=== PATIENT | male | born 1970 | race Caucasian/White ===

== ENCOUNTER 2018-09-26 08:39 | Emergency (ER) | payer BC ==
--- NOTE | 2018-09-26 09:06 | UC ---
UC General HPI - HPI Summary HPI Summary: PT IS C/O A HIVY RASH TO HIS FACE AND UPPER CHEST AND BACK X 4 DAYS. DENIES NEW EXPOSREES, FEVER ANDF ANY ACUTE ILLNESS. IS ON ENBREL FOR PSORIATIC ARTHRITIS - History of Current Complaint Chief Complaint: UCRash Stated Complaint: SKIN COMPLAINT Time Seen by Provider: 09/26/18 08:50 Hx Obtained From: Patient Onset/Duration: Gradual Onset Timing: Constant Pain Intensity: 0 Associated Signs & Symptoms: Negative: Fever - Allergy/Home Medications Allergies/Adverse Reactions: Allergies Allergy/AdvReac Type Severity Reaction Status Date / Time No Known Allergies Allergy Verified 09/26/18 08:52 Home Medications: Home Medications Etanercept SYR (NF) [Enbrel (NF)] 50 mg SUBCUT Q14D 09/26/18 [History Confirmed 09/26/18] Turmeric [Curcumin] 30 ml PO DAILY 09/26/18 [History Confirmed 09/26/18] PMH/Surg Hx/FS Hx/Imm Hx - Additional Past Medical History Additional PMH: PSORIATIC ARTHRITIS, WHITE COAT HTN - Surgical History Surgical History: None - Social History Alcohol Use: Daily Substance Use Type: None Smoking Status (MU): Never Smoked Tobacco - Immunization History Vaccination Up to Date: Yes Review of Systems All Other Systems Reviewed And Are Negative: Yes Constitutional: Positive: Negative Skin: Positive: Rash Eyes: Positive: Negative ENT: Positive: Negative Respiratory: Positive: Negative Cardiovascular: Positive: Negative Gastrointestinal: Positive: Negative Genitourinary: Positive: Negative Motor: Positive: Negative Neurovascular: Positive: Negative Musculoskeletal: Positive: Negative Neurological: Positive: Negative Psychological: Positive: Negative Physical Exam Triage Information Reviewed: Yes Appearance: Well-Appearing Vital Signs: Initial Vital Signs Temp 98.1 F 09/26/18 08:49 Pulse 85 09/26/18 08:49 Resp 14 09/26/18 08:49 BP 167/90 09/26/18 08:49 Pulse Ox 98 09/26/18 08:49 Vital Signs Reviewed: Yes Eyes: Positive: Conjunctiva Clear ENT: Positive: Normal ENT inspection Neck: Positive: Supple, Nontender, No Lymphadenopathy Respiratory: Positive: Lungs clear, Normal breath sounds Cardiovascular: Positive: RRR, No Murmur Abdomen Description: Positive: Nontender, No Organomegaly, Soft Bowel Sounds: Positive: Present Musculoskeletal: Positive: ROM Intact Neurological: Positive: Alert Psychological: Positive: Age Appropriate Behavior Skin: Positive: Rashes - CONFLUENT DRY SCALEY RASH ON RED BASE TO LOWER HALF OF TRUNK(PT STATES CHRONIC), SEVERAL SMALL SPOTS WITH SAME APPEARANCE ON FACE UPPER CHEST AND UPPER BACK. NO BLISTERING AND NOT PETECHIAL. Course/Dx - Course Course Of Treatment: CASE D/W DR MIRAMONTES WHO ASLO EXAMED RASH AND WE AGREE JESSENIA IS C/W HIS PSORIASISI AND WILL TX WITH MEDROL DOSE NEGAR AND F/U WITH HIS SPECIALIST. BP ELEVATED HERE. PT STATES ALWAYS HAPPENS DURING VISIT THENS RESOLVES. - Differential Dx - Multi-Symptom Differential Diagnoses: Other - VIRAL RASH, HIVES, PSORIASIS - Diagnoses Provider Diagnosis: Psoriasis Discharge - Sign-Out/Discharge Documenting (check all that apply): Patient Departure All imaging exams completed and their final reports reviewed: No Studies - Discharge Plan Condition: Stable Disposition: HOME Prescriptions: methylPREDNISolone [Medrol Dosepak 4 MG*] 0 mg PO .SEE NEGAR INSTRUCTION #1 tab Patient Education Materials: Psoriasis (ED) Referrals: Ivonne Galo MD [Primary Care Provider] - Additional Instructions: FOLLOW UP WITH YOUR DOCTOR AT [facility] IN [place] THIS FRIDAY. HAVE A BP RECHECK ON FOLLOW UP VISIT. BP 152/102 - Billing Disposition and Condition Condition: STABLE Disposition: Home - Attestation Statements Provider Attestation: I was available for consult. This patient was seen by the ROD. The patient was not presented to, seen by, or examined by me. EK
[2018-09-26 09:18] VITALS: BP 152/102
== END 2018-09-26 09:24 | disposition home or self-care (01) ==
LOC: UCCORT 08:39
DX: L40.9 Psoriasis, unspecified (principal)
CPT/HCPCS: 99202; G0463

== ENCOUNTER 2019-07-17 17:11 | Emergency (ER) | payer BC ==
[2019-07-17 18:09] VITALS: BP 137/96
--- NOTE | 2019-07-17 18:23 | UC ---
Ear Complaint HPI - HPI Summary HPI Summary: drainage and pain both ear--no fevers,no sore throat - History of Current Complaint Chief Complaint: UCEar Stated Complaint: BILATERAL EAR PAIN Time Seen by Provider: 07/17/19 17:50 Hx Obtained From: Patient Onset/Duration: Lasting Minutes, Lasting Days, Still Present Pain Intensity: 0 Pain Scale Used: 0-10 Numeric Associated Signs/Symptoms: Positive: Discharge - Allergies/Home Medications Allergies/Adverse Reactions: Allergies Allergy/AdvReac Type Severity Reaction Status Date / Time No Known Allergies Allergy Verified 07/17/19 17:57 Home Medications: Home Medications Secukinumab [Cosentyx Pen] 300 mg .ROUTE MONTHLY 07/17/19 [History Confirmed ] PMH/Surg Hx/FS Hx/Imm Hx Previously Healthy: No - psoratic arthritis - Surgical History Surgical History: None - Family History Known Family History: Positive: None - Social History Occupation: Employed Full-time Lives: With Family Alcohol Use: Daily Substance Use Type: None Smoking Status (MU): Never Smoked Tobacco - Immunization History Vaccination Up to Date: Yes Review of Systems All Other Systems Reviewed And Are Negative: Yes Constitutional: Positive: Negative Skin: Positive: Negative Eyes: Positive: Negative ENT: Positive: Ear Ache - with drainage bilaterally Respiratory: Positive: Negative Cardiovascular: Positive: Negative Gastrointestinal: Positive: Negative Genitourinary: Positive: Negative Motor: Positive: Negative Neurovascular: Positive: Negative Musculoskeletal: Positive: Negative Neurological: Positive: Negative Psychological: Positive: Negative Is Patient Immunocompromised?: No Physical Exam Triage Information Reviewed: Yes Appearance: Well-Appearing, No Pain Distress, Well-Nourished Vital Signs: Initial Vital Signs Temp 98.0 F 07/17/19 18:03 Pulse 82 07/17/19 18:03 Resp 18 07/17/19 18:03 BP 137/96 07/17/19 18:03 Pulse Ox 96 07/17/19 18:03 Vital Signs Reviewed: Yes Eye Exam: Normal Eyes: Positive: Conjunctiva Clear ENT Exam: Normal ENT: Positive: Normal ENT inspection, Hearing grossly normal, Pharynx normal, TMs normal, Other - erythema bilateral canal, crusting noted. Negative: Nasal congestion, Trismus, Muffled voice, Hoarse voice, Dental tenderness, Sinus tenderness Dental Exam: Normal Neck exam: Normal Neck: Positive: Supple, Nontender Respiratory Exam: Normal Respiratory: Positive: No respiratory distress, No accessory muscle use Cardiovascular Exam: Normal Cardiovascular: Positive: Pulses Normal, Brisk Capillary Refill Musculoskeletal Exam: Normal Musculoskeletal: Positive: Strength Intact, ROM Intact, No Edema Neurological Exam: Normal Neurological: Positive: Alert, Muscle Tone Normal Psychological Exam: Normal Skin Exam: Normal Ear Complaint Course/Dx - Course Course Of Treatment: Cipro otic drops bilaterally, follow with pcp prn - Differential Dx/Diagnosis Provider Diagnosis: Bilateral otitis externa Discharge ED - Sign-Out/Discharge Documenting (check all that apply): Patient Departure All imaging exams completed and their final reports reviewed: No Studies - Discharge Plan Condition: Stable Disposition: HOME Prescriptions: Ciproflox/Dexameth OTIC.SUSP* [Ciprodex Otic*] 4 drop .SEE ORDER BID #1 bottle Patient Education Materials: Otitis Externa (ED), How to Use Ear Drops (ED) Referrals: Ivonne Galo MD [Primary Care Provider] - Stacy Maldonado MD [Medical Doctor] - 1 Week - Billing Disposition and Condition Condition: STABLE Disposition: Home
== END 2019-07-17 18:39 | disposition home or self-care (01) ==
LOC: UCCORT 17:11
DX: H60.93 Unspecified otitis externa, bilateral (principal)
CPT/HCPCS: 99212; G0463